=== PATIENT | male | born 1955 | race Caucasian/White ===

== ENCOUNTER 2016-12-14 06:09 | Day surgery (SDC) | payer MEDICARE ==
[~2016-12-14] VITALS: Ht 190.5 cm; Wt 150.0 kg
[~2016-12-14 06:09] MED LIST: ARIP1TAB7 PO; CYMB60CA PO; CYMBALTA PO; LASI20TA PO; LISI-360 PO; ZOLP10TA3 PO
[2016-12-14 06:40] VITALS: BP 167/103; PULSE 78; RESP 20; TEMP 98.5; O2SAT 95
[2016-12-14] MEDS ORDERED: OMEP20.6 (06:41)
[2016-12-14] MEDS ORDERED: SIMV10TA PO (06:41)
[2016-12-14] MEDS ORDERED: LISI-515 PO (06:41)
[2016-12-14] MEDS ORDERED: BYST5TAB2 PO (06:41)
[2016-12-14] MEDS ORDERED: SITA1TAB2 PO (06:41)
[2016-12-14] MEDS ORDERED: INSULIN HUMAN REGULAR 1,000 UNITS/10 ML VIAL SQ PRN (07:00)
[2016-12-14] MEDS ORDERED: LACTATED RINGER'S 1000 ML IV SCH (07:00)
[2016-12-14] MEDS ORDERED: ceFAZolin 2 GM PREMIX 50 ML IV SCH (07:00)
[2016-12-14] MEDS ORDERED: SODIUM CHLOR 0.9% 1000 ML INJ 1,000 ML IV SCH (07:00)
[2016-12-14] MEDS ORDERED: SODIUM CHLORID 0.9% 500 ML IV SCH (07:00)
[2016-12-14] MEDS ORDERED: METOPROLOL TARTRATE 25 MG TAB PO PRN (07:00)
[2016-12-14] MEDS ORDERED: LIDOCAINE 1%/EPINEPHrine 1:100,000 SOLN 20 ML VIAL ONE (07:51)
[2016-12-14] MEDS ORDERED: PROPOFOL 200 MG/20 ML AMP IV ONE (11:41)
[2016-12-14] MEDS ORDERED: PHENYLEPH/NS 1000 MCG/10 ML SYR IV ONE (11:41)
[2016-12-14] MEDS ORDERED: ONDANSETRON HCL 4 MG/2 ML VIAL IV PUSH ONE (11:41)
[2016-12-14] MEDS ORDERED: ePHEDrine/NS 25 MG/5 ML SYR IV ONE (11:41)
--- NOTE | 2016-12-14 11:56 | PD.RAD ---
Post CT Procedure Prog Note Pre Procedure Diagnosis: (1) Right renal mass Post Procedure Diagnosis: (1) Right renal mass Procedure Date: Dec 14, 2016 Supervising Radiologist: Kwan Sainz Proceduralist/Assist: RT Guera(R)(CT) Anesthesia: General Plan of Activity Patient to Unit: PACU Patient Condition: Good See PACS Report for procedural detail/treatment Biopsy Side: Right Biopsy Procedure: Kidney Specimen: Core Biopsy Additional Detail: 16 Ga core biopsy Followed by mass cryoablation Kwan Sainz MD Dec 14, 2016 11:56
[2016-12-14] MEDS ORDERED: HYDROmorphone HCL 2 MG TAB PO PRN (12:00)
[2016-12-14] MEDS ORDERED: MIDAZOLAM HCL 2 MG/2 ML VIAL ONE (12:03)
[2016-12-14] MEDS ORDERED: fentaNYL CITRATE 250 MCG/5 ML AMP ONE (12:04)
[2016-12-14] MEDS ORDERED: MORPHINE SULFATE 4 MG/ML INJ ONE (12:04)
[2016-12-14] MEDS ORDERED: PILL SPLITTER OTHER PRN (12:15)
[2016-12-14] MEDS ORDERED: DO NOT ADM ANY ANTICOAGULANT DRUGS XX PRN (12:30)
[2016-12-14 12:50] VITALS: BP 139/86; PULSE 107; RESP 20; TEMP 97.6; O2SAT 93
[2016-12-14 13:09] VITALS: BP 131/92; PULSE 86; RESP 20; O2SAT 95
--- NOTE | 2016-12-14 13:20 | RADRPT ---
EXAM DATE/TIME: 12/14/2016 09:19 This report includes an Addendum and supersedes previous reports for this exam. [facility] COMPARISON: No previous studies available for comparison. INDICATIONS : Right renal mass BIOPSY SITE: Right kidney Anesthesia and pain control was provided by the Anesthesia department. Prophylactic antibiotics were administered with appropriate pre-procedure timing. Vancomycin within 2 hrs of procedure, Ancef (or alternative) within 1 hr of procedure start. Intra-procedural antibiotics were given as prescribed above. DEVICE(S): 1.) 16 gauge Temno core biopsy needle MEDICAL HISTORY : Hypertension. Diabetes mellitus type 1. SURGICAL HISTORY : Hernia repair ENCOUNTER: Initial ACUITY: 1 day PAIN SCORE: 0/10 LOCATION: Right flank A total of one core specimen(s) were obtained and sent to the laboratory for pathologic evaluation. PROCEDURE: 1. CT guided renal biopsy. Prior to the procedure informed consent was obtained. Any appropriate prior imaging studies were rev iewed. The site was prepped in a sterile fashion. Full sterile technique was used, including cap, mask, pushpa rile gloves and gown and a large sterile sheet. Hand hygiene and 2% chlorhexidine and/or betadine/al cohol prep was utilized per protocol for cutaneous antisepsis. The skin and subcutaneous tissues wer e infiltrated with local anesthetic solution. With CT guidance the previously identified target was localized. Biopsy was performed using the presc ribed needle as above. Adequate hemostasis was obtained with compression at the puncture site. Follow-up CT scan reveals no hemorrhage. The patient tolerated the procedure well and there were no complications. The patient subtotally unde rwent cryoablation treatment of the mass and later was returned to the Radiology Outpatient Unit in s table condition. CONCLUSION: Uncomplicated CT guided biopsy. Kwan Sainz MD on December 14, 2016 at 13:17 Board Certified Radiologist. This report was verified electronically. 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 Given this result, I would recommend the patient undergo pre-and post contrast renal MRI at 6 months, 12 months and 24 months and then annually thereafter for at least a total of 5 years. Kwan Sainz MD Board Certified Radiologist. This report was verified electronically.
[2016-12-14 13:39] VITALS: BP 135/94; PULSE 87; RESP 20; O2SAT 91
[2016-12-14 14:28] LABS: AUTOMATED NEUTROPHIL # 15.5 TH/MM3 (1.8-7.7); BASOPHIL % 0.2 % (0.0-2.0); HEMATOCRIT 47.8 % (39.0-51.0); HEMO FLAGS DIFF FINAL; LYMPH % 3.6 % (9.0-44.0); LYMPHOCYTE # 0.6 TH/MM3 (1.0-4.8); MEAN CORPUSCULAR HEMOGLOBIN 28.5 PG (27.0-34.0); MEAN CORPUSCULAR HGB CONC 33.1 % (32.0-36.0); MONO % 1.5 % (0.0-8.0); NEUT % 94.7 % (16.0-70.0); PLATELET COUNT 192 TH/MM3 (150-450); RED BLOOD COUNT 5.56 MIL/MM3 (4.50-5.90); RED CELL DISTRIBUTION WIDTH 14.2 % (11.6-17.2); WHITE BLOOD COUNT 16.3 TH/MM3 (4.0-11.0)
--- NOTE | 2016-12-14 16:07 | RADRPT ---
EXAM DATE/TIME: 12/14/2016 09:19 This report includes an Addendum and supersedes previous reports for this exam. INDICATIONS : Right renal mass Anesthesia and pain control was provided by the Anesthesia department. Prophylactic antibiotics were administered with appropriate pre-procedure timing. Vancomycin within 2 hrs of procedure, Ancef (or alternative) within 1 hr of procedure start. Intra-procedural antibiotics were given as prescribed above. DEVICE(S): 1.) 16 gauge Cryoablation probe x4 MEDICAL HISTORY : Hypertension. Diabetes mellitus type 1. SURGICAL HISTORY : hernia repair ENCOUNTER: Initial ACUITY: 1 day PAIN SCORE: 0/10 LOCATION: Right flank PROCEDURE : 1. CT guided cryoablation. Under sterile conditions and using aseptic technique with CT guidance the mass was localized and sati sfactory approach was taken to access the lesion. 4 probes were utilized. Biopsy was accomplished con comitantly. See that separate report for details. [employer] Cryoprobes were employed using percutaneous technique employing the prescribed probes. A freeze-thaw, freeze-thaw technique was employed and serial imaging demonstrated an ice ball emcomp assing the entire lesion. Post procedure images demonstrate expected postoperative changes without e vidence of hematoma. CONCLUSION: Uncomplicated cryoablation as above. Kwan Sainz MD on December 14, 2016 at 16:01 Board Certified Radiologist. This report was verified electronically. 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 Given this results, I would recommend the patient undergo pre-and post contrast renal MRI at 6 months , 12 months and 24 months and then annually thereafter for at least a total of 5 years. Kwan Sainz MD Board Certified Radiologist. This report was verified electronically.
--- NOTE | 2016-12-14 21:26 | EKG ---
Date Performed: 12/14/2016 Time Performed: 06:56:08 PTAGE: 61 years EKG: Sinus rhythm MARKED LEFT AXIS DEVIATION POOR R-WAVE PROGRESSION ABNORMAL ECG NO PREVIOUS TRACING DOCTOR: Bud Brennan Interpretating Date/Time 12/14/2016 21:24:26
== END 2016-12-14 14:45 | disposition home or self-care (01) ==
LOC: HRAD 06:09 → HRIP 06:14 → EDSTATUS 08:00 → HRAD 14:45
PROVIDERS: ATTEND Urology
DX: C64.1 Malignant neoplasm of right kidney, except renal pelvis (principal); I12.9 Hypertensive chronic kidney disease with stage 1 through stage 4 chronic kidney disease, or unspecified chronic kidney disease; E10.22 Type 1 diabetes mellitus with diabetic chronic kidney disease; N18.3 Chronic kidney disease, stage 3 (moderate); K21.9 Gastro-esophageal reflux disease without esophagitis
CPT/HCPCS: 50200; 50593; 77012; 77013; 85025; 88305; 88341; 88342; 93005; C2618; J0690; J2250; J2270; J2370; J2405; J3010; J7040